=== PATIENT | female | born 1975 | race Caucasian/White ===

== ENCOUNTER 2016-07-13 21:43 | Emergency (ER) | payer BC ==
[2016-07-13] MEDS ORDERED: KETOROLAC 30 MG/ML 1 ML VIAL IVP STA (22:19)
[2016-07-13] MEDS ORDERED: SODIUM CHLORIDE 0.9% 1,000 ML IV STA (22:19)
[2016-07-13] MEDS ORDERED: ONDANSETRON 4 MG/2 ML VIAL IVP STA (22:19)
--- NOTE | 2016-07-13 22:24 | ED ---
Abdominal Pain HPI - General Chief Complaint: Abdominal Pain Stated Complaint: Abd Pain Time Seen by Provider: 07/13/16 22:00 Source: patient, RN notes reviewed Mode of arrival: ambulatory Limitations: no limitations - History of Present Illness Initial Comments: Patient is a 41-year-old female with chief complaint of diffuse lower abdominal pain for approximately 3 days. Patient reports that she's also had some symptoms of dysuria. She reports last menstrual period was approximately 2 weeks ago. She denies any chance of . Patient reports that she feels nauseated at this time but denies any vomiting. She denies any changes in bowel movements. She denies any fever or chills. Patient reports that the pain is severe. She states that she's had no history of kidney stones. She denies any hematuria as well. Patient denies any vaginal discharge. Patient reports that she's had a history of a but denies any other abdominal surgeries. - Related Data Previous Rx's Medication Instructions Recorded Ciprofloxacin HCl [Cipro] 500 mg PO Q12HR #10 tablet 07/14/16 Phenazopyridine [Pyridium] 100 mg PO TID #6 tablet 07/14/16 Allergies Allergy/AdvReac Type Severity Reaction Status Date / Time No Known Allergies Allergy Verified 07/13/16 21:53 Review of Systems ROS Statement: Those systems with pertinent positive or pertinent negative responses have been documented in the HPI. ROS Other: All systems not noted in ROS Statement are negative. 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 She is on appear to be in any acute distress. Limitations: no limitations General appearance: alert, in no apparent distress Head exam: Present: atraumatic, normocephalic, normal inspection Eye exam: Present: normal appearance, PERRL, EOMI. Absent: scleral icterus, conjunctival injection, periorbital swelling ENT exam: Present: normal exam, mucous membranes moist Neck exam: Present: normal inspection. Absent: tenderness, meningismus, lymphadenopathy Respiratory exam: Present: normal lung sounds bilaterally. Absent: respiratory distress, wheezes, rales, rhonchi, stridor Cardiovascular Exam: Present: regular rate, normal rhythm, normal heart sounds. Absent: systolic murmur, diastolic murmur, rubs, gallop, clicks GI/Abdominal exam: Present: soft, normal bowel sounds. Absent: distended, tenderness, guarding, rebound, rigid Extremities exam: Present: normal inspection, full ROM, normal capillary refill. Absent: tenderness, pedal edema, joint swelling, calf tenderness Back exam: Present: normal inspection Neurological exam: Present: alert, oriented X3, CN II-XII intact Psychiatric exam: Present: normal affect, normal mood Skin exam: Present: warm, dry, intact, normal color. Absent: rash Course Vital Signs 07/13/16 07/13/16 07/13/16 21:49 23:06 23:31 Temperature 97.3 F L 98.2 F 98.1 F Pulse Rate 96 98 78 Respiratory 22 20 20 Rate Blood Pressure 184/90 178/78 156/72 O2 Sat by Pulse 99 98 99 Oximetry 07/14/16 00:24 Temperature 97.6 F Pulse Rate 78 Respiratory 18 Rate Blood Pressure 146/72 O2 Sat by Pulse 98 Oximetry Medical Decision Making - Medical Decision Making Patients 41 year old female with 3 days of lower abdominal pain and dysuria. Patient urine is positive for UTI with positive nitrates, leukocyte esterase, and large WBC and RBC. Patient refused abdominal xray. Patient does have evidence of leukocytosis. We will give patient IV rocephin before discharge. Patient will be placed on cipro 500 BID for 10 days. Patient also given Rx of pyridium. Return parameters discussed. Patient understands treatment plan and will comply. - Lab Data Result diagrams: 07/13/16 22:50 07/13/16 22:50 Lab Results 07/13/16 07/13/16 07/13/16 Range/Units 22:40 22:50 22:50 WBC 14.4 H (3.8-10.6) k/uL RBC 5.35 (3.80-5.40) m/uL Hgb 14.5 (11.4-16.0) gm/dL Hct 44.9 (34.0-46.0) % MCV 83.9 (80.0-100.0) fL MCH 27.2 (25.0-35.0) pg MCHC 32.4 (31.0-37.0) g/dL RDW 13.4 (11.5-15.5) % Plt Count 280 (150-450) k/uL Neutrophils % 62 % Lymphocytes % 29 % Monocytes % 5 % Eosinophils % 2 % Basophils % 1 % Neutrophils # 8.8 H (1.3-7.7) k/uL Lymphocytes # 4.2 (1.0-4.8) k/uL Monocytes # 0.7 (0-1.0) k/uL Eosinophils # 0.3 (0-0.7) k/uL Basophils # 0.1 (0-0.2) k/uL Sodium 140 (137-145) mmol/L Potassium 4.7 (3.5-5.1) mmol/L Chloride 103 (98-107) mmol/L Carbon Dioxide 23 (22-30) mmol/L Anion Gap 14 mmol/L BUN 20 H (7-17) mg/dL Creatinine 0.67 (0.52-1.04) mg/dL Est GFR (MDRD) Af Amer >60 (>60 ml/min/1.73 sqM) Est GFR (MDRD) Non-Af >60 (>60 ml/min/1.73 sqM) Glucose 139 H (74-99) mg/dL Calcium 9.7 (8.4-10.2) mg/dL Total Bilirubin 0.6 (0.2-1.3) mg/dL AST 22 (14-36) U/L ALT 27 (9-52) U/L Alkaline Phosphatase 78 (38-126) U/L Total Protein 7.6 (6.3-8.2) g/dL Albumin 4.2 (3.5-5.0) g/dL Amylase 58 (30-110) U/L Lipase 155 (23-300) U/L Urine Color Yellow Urine Appearance Turbid H (Clear) Urine pH 6.0 (5.0-8.0) Ur Specific [place] 1.013 (1.001-1.035) Urine Protein 1+ H (Negative) Urine Glucose (UA) 4+ H (Negative) Urine Ketones Negative (Negative) Urine Blood Moderate H (Negative) Urine Nitrate Positive H (Negative) Urine Bilirubin Negative (Negative) Urine Urobilinogen <2.0 (<2.0) mg/dL Ur Leukocyte Esterase Large H (Negative) Urine RBC >182 H (0-5) /hpf Urine WBC >182 H (0-5) /hpf Urine WBC Clumps Many H (None) /hpf Ur Squamous Epith Cells 15 H (0-4) /hpf Urine Bacteria Moderate H (None) /hpf Disposition Clinical Impression: Urinary tract infection Disposition: HOME SELF-CARE Condition: Good Instructions: Urinary Tract Infection in Women (ED) Additional Instructions: Patient started to completely anabiotic prescription and to use Pyridium for the next 2 days for pain. Motrin and Tylenol as well for fever and pain. Return to the [facility] if any alarming signs or symptoms occur. Prescriptions: Ciprofloxacin HCl [Cipro] 500 mg PO Q12HR #10 tablet Phenazopyridine [Pyridium] 100 mg PO TID #6 tablet Referrals: Eulalia Wadsworth MD [Primary Care Provider] - 1-2 days Time of Disposition: 00:05
[2016-07-13 22:49] LABS: Appearance,Urine Turbid (Clear); Bacteria,Urine Moderate /hpf; Bilirubin,Urine Negative (Negative); Glucose,Urine (UA) 4+ (Negative); Ketones,Urine Negative (Negative); Leukocyte Esterase,Urine Large (Negative); Nitrite,Urine Positive (Negative); Particle Count 38798; Protein,Urine 1+ (Negative); RBC,Urine >182 /hpf (0-5); Specific Gravity,Urine 1.013 (1.001-1.035); Squamous Epithelial Cell,Urine 15 /hpf (0-4); UA Billing (MACRO vs. MICRO) MICRO; Urobilinogen,Urine <2.0 mg/dL (<2.0); WBC,Urine >182 /hpf (0-5)
[2016-07-13] MEDS ORDERED: HYDROmorphone 1 MG/ML 1 ML SYRINGE IM STA (23:07)
[2016-07-13 23:09] LABS: Basophils # (A) 0.1 k/uL (0-0.2); Basophils % (A) 1 %; CHCM 32.3; Eosinophils # (A) 0.3 k/uL (0-0.7); Eosinophils % (A) 2 %; HCT 44.9 % (34.0-46.0); HGB 14.5 gm/dL (11.4-16.0); Luc # (Auto) 0.25; Luc % (Auto) 2; Lymphocytes # (A) 4.2 k/uL (1.0-4.8); Lymphocytes % (A) 29 %; MCH 27.2 pg (25.0-35.0); MCHC 32.4 g/dL (31.0-37.0); MCV 83.9 fL (80.0-100.0); Mean Platelet Volume 7.2; Monocytes # (A) 0.7 k/uL (0-1.0); Monocytes % (A) 5 %; Neutrophils # (A) 8.8 k/uL (1.3-7.7); Neutrophils % (A) 62 %; RBC 5.35 m/uL (3.80-5.40); RDW 13.4 % (11.5-15.5); WBC 14.4 k/uL (3.8-10.6); WBC (Perox) 13.85
[2016-07-13 23:15] LABS: Amylase 58 U/L (30-110); Anion Gap 14 mmol/L; Blood Urea Nitrogen 20 mg/dL (7-17); Calcium 9.7 mg/dL (8.4-10.2); Carbon Dioxide 23 mmol/L (22-30); Chloride 103 mmol/L (98-107); Glucose 139 mg/dL (74-99); Non-African American GFR(MDRD) >60 (>60 ml/min/1.73 sqM); Potassium 4.7 mmol/L (3.5-5.1); Sodium 140 mmol/L (137-145); Total Bilirubin 0.6 mg/dL (0.2-1.3); Total Protein 7.6 g/dL (6.3-8.2)
[2016-07-13 23:16] LABS: ALT 27 U/L (9-52); AST 22 U/L (14-36); Alkaline Phosphatase 78 U/L (38-126)
[2016-07-13 23:33] VITALS: PULSE 78
[2016-07-14] MEDS ORDERED: CIPROFLOXACIN HCL 500 MG TAB PO STA (00:08)
[2016-07-14 00:25] VITALS: BP 146/72; RESP 18; TEMP 97.6
== END 2016-07-14 00:26 | disposition home or self-care (01) ==
LOC: EC 21:43
DX: N39.0 Urinary tract infection, site not specified (principal); F17.200 Nicotine dependence, unspecified, uncomplicated
CPT/HCPCS: 36415; 80053; 82150; 83690; 85025; 81001; 96365; 96372; 96375 ×2; 99284; J2405; J0696; J1885; J1170

== ENCOUNTER 2016-07-16 02:23 | Emergency (ER) | payer BC ==
[2016-07-16] MEDS ORDERED: HYDROmorphone 1 MG/ML 1 ML SYRINGE IVP STA ×2 (02:34→04:06)
[2016-07-16] MEDS ORDERED: SODIUM CHLORIDE 0.9% 1,000 ML IV STA (02:34)
[2016-07-16] MEDS ORDERED: ONDANSETRON 4 MG/2 ML VIAL IVP STA (02:34)
[2016-07-16] MEDS: KETOROLAC 30 MG/ML 1 ML VIAL IVP STA ×2 (03:01→04:17)
[2016-07-16 03:03] LABS: Appearance,Urine Clear (Clear); Basophils # (A) 0.1 k/uL (0-0.2); Basophils % (A) 1 %; Bilirubin,Urine Negative (Negative); CH 27.2; CHCM 32.4; Eosinophils # (A) 0.3 k/uL (0-0.7); Eosinophils % (A) 2 %; Glucose,Urine (UA) 3+ (Negative); HCT 48.2 % (34.0-46.0); HDW 2.55; HGB 14.7 gm/dL (11.4-16.0); Ketones,Urine Negative (Negative); Leukocyte Esterase,Urine Negative (Negative); Luc # (Auto) 0.15; Luc % (Auto) 1; Lymphocytes # (A) 3.3 k/uL (1.0-4.8); Lymphocytes % (A) 28 %; MCH 25.8 pg (25.0-35.0); MCHC 30.6 g/dL (31.0-37.0); MCV 84.4 fL (80.0-100.0); Mean Platelet Volume 7.6; Monocytes # (A) 0.6 k/uL (0-1.0); Monocytes % (A) 5 %; Neutrophils # (A) 7.3 k/uL (1.3-7.7); Neutrophils % (A) 62 %; Nitrite,Urine Negative (Negative); PH, Urine 6.5 (5.0-8.0); Protein,Urine Negative (Negative); RDW 13.3 % (11.5-15.5); Specific Gravity,Urine 1.006 (1.001-1.035); UA Billing (MACRO vs. MICRO) CHEM; Urobilinogen,Urine <2.0 mg/dL (<2.0); WBC 11.7 k/uL (3.8-10.6); WBC (Perox) 11.68
--- NOTE | 2016-07-16 03:11 | XR ---
EXAMINATION TYPE: XR KUB DATE OF EXAM: 07/16/2016 2:45 AM CLINICAL HISTORY: Flank pain history of recent kidney stone, . TECHNIQUE: 2 upright frontal radiographs of abdomen were obtained. COMPARISON: None. FINDINGS: There is evidence of [id number] gaseous distention of small bowel loops is noted with air-fluid levels in the abdomen with suggestion of mild ileus. No significant bowel obstruction is noted.. There is no visceromegaly, pneumoperitoneum, or abnormal calcification appreciated. The lung bases are clear and the osseous structures are intact. IMPRESSION: 1. Suggestion of mild ileus or enteritis changes. 2. No significant bowel obstruction.
[2016-07-16 03:13] LABS: ALT 29 U/L (9-52); AST 13 U/L (14-36); Alkaline Phosphatase 78 U/L (38-126); Amylase 52 U/L (30-110); Anion Gap 14 mmol/L; Blood Urea Nitrogen 15 mg/dL (7-17); Calcium 9.7 mg/dL (8.4-10.2); Carbon Dioxide 22 mmol/L (22-30); Chloride 104 mmol/L (98-107); Glucose 155 mg/dL (74-99); Non-African American GFR(MDRD) >60 (>60 ml/min/1.73 sqM); Potassium 4.3 mmol/L (3.5-5.1); Sodium 140 mmol/L (137-145); Total Bilirubin 0.5 mg/dL (0.2-1.3); Total Protein 7.6 g/dL (6.3-8.2)
--- NOTE | 2016-07-16 03:30 | ED ---
Abdominal Pain HPI - General Chief Complaint: Abdominal Pain Stated Complaint: abd pain Time Seen by Provider: 07/16/16 02:33 Source: patient, RN notes reviewed, old records reviewed Mode of arrival: ambulatory Limitations: no limitations - History of Present Illness Initial Comments: Patient is a 41-year-old female with a chief complaint of lower back pain 1 day. Patient reports that she was recently diagnosed with a urinary tract infection yesterday area patient yesterday was given a gram of IV antibiotics Rocephin and discharged on Cipro. Patient reports that she's been taking the medications and Pyridium as prescribed. She states that the pain is now not in her abdomen but is radiated towards her back. She denies any abdominal tenderness at this time. She reports that she's had a few episodes of vomiting and states that she feels chilled but denies any specific fever. She reports that she's had a history of kidney stones in the past. Patient reports that she is unable to get comfortable in any position that she is standing or sitting in. Patient denies any recent fever, shortness of breath, chest pain, abdominal pain, numbness or tingling, dysuria or hematuria, constipation or diarrhea, headaches or visual changes, or any other current symptoms - Related Data Previous Rx's Medication Instructions Recorded Ciprofloxacin HCl [Cipro] 500 mg PO Q12HR #10 tablet 07/14/16 Phenazopyridine [Pyridium] 100 mg PO TID #6 tablet 07/14/16 Dicyclomine [Bentyl] 10 mg PO TID #15 capsule 07/16/16 Ketorolac [Toradol] 10 mg PO Q6HR #10 tab 07/16/16 Allergies Allergy/AdvReac Type Severity Reaction Status Date / Time No Known Allergies Allergy Verified 07/16/16 02:29 Review of Systems ROS Statement: Those systems with pertinent positive or pertinent negative responses have been documented in the HPI. ROS Other: All systems not noted in ROS Statement are negative. 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 She is currently pacing the room in pain. Patient is clutching her back. Limitations: no limitations General appearance: alert Head exam: Present: atraumatic, normocephalic, normal inspection Eye exam: Present: normal appearance, PERRL, EOMI. Absent: scleral icterus, conjunctival injection, periorbital swelling ENT exam: Present: normal exam, mucous membranes moist Neck exam: Present: normal inspection. Absent: tenderness, meningismus, lymphadenopathy Respiratory exam: Present: normal lung sounds bilaterally. Absent: respiratory distress, wheezes, rales, rhonchi, stridor Cardiovascular Exam: Present: regular rate, normal rhythm, normal heart sounds. Absent: systolic murmur, diastolic murmur, rubs, gallop, clicks GI/Abdominal exam: Present: soft, normal bowel sounds. Absent: distended, tenderness, guarding, rebound, rigid Extremities exam: Present: normal inspection, full ROM, normal capillary refill. Absent: tenderness, pedal edema, joint swelling, calf tenderness Back exam: Present: normal inspection, full ROM, CVA tenderness (R), CVA tenderness (L), other (lower back tenderness) Neurological exam: Present: alert, oriented X3, CN II-XII intact Psychiatric exam: Present: normal affect, normal mood Skin exam: Present: warm, dry, intact, normal color. Absent: rash Course Vital Signs 07/16/16 02:25 Temperature 97 F L Pulse Rate 93 Respiratory 18 Rate Blood Pressure 212/92 O2 Sat by Pulse 99 Oximetry Medical Decision Making - Medical Decision Making Patient is a 41-year-old female recently diagnosed with urinary tract infection yesterday. Yesterday patient did refuse any imaging studies. Patient was given a gram of Rocephin yesterday and has taken her Cipro ofloxacin today. Patient reports that the pain is not in her abdomen at this time and is only in her lower back. She reports it's on bilateral sides. Patient was given a KUB x -ray which shows mild enteritis and ileus changes. CT abdomen and pelvis without contrast was obtained to rule out nephrolithiasis. Patient's lab work was reviewed and compared to yesterday's. Patient's urine is essentially unremarkable besides 3+ glucose at this time. This is a significant difference from yesterday and many rbc's, wbc's, leukocyte esterase. Patient also has negative leukocytosis. Yesterday was 14.1 and today it is 11.6. Patient was ambulating around the room consistent with a kidney stone. Patient was tearful upon initial examination. Patient pain did subside with IV Toradol and 0.[address] abdomen and pelvis shows the patient is constipated. No evidence of hydronephrosis or kidney stones. Patient is reporting that she's had 4 bowel movements earlier today. Patient states that there is no way that constipation is due to the cause of this pain. I discussed the possibility that she has passed a stone and is unable to be seen this time. Patient reports that earlier today the pain felt like contractions in her lower back that would be relieved with heat somewhat. Patient will be discharged at this time with a repeat dose of pain medication while in the [facility]. She will also be given a a magnesium citrate bottle, Tylenol 3 starter pack and Zofran starter pack. Patient is advised to follow up with primary care provider tomorrow. Return parameters were discussed. Patient will be given a prescription for Bentyl and Toradol. - Lab Data Result diagrams: 07/16/16 02:40 07/16/16 02:40 Lab Results 07/16/16 07/16/16 07/16/16 Range/Units 02:40 02:40 02:40 WBC 11.7 H (3.8-10.6) k/uL RBC 5.70 H (3.80-5.40) m/uL Hgb 14.7 (11.4-16.0) gm/dL Hct 48.2 H (34.0-46.0) % MCV 84.4 (80.0-100.0) fL MCH 25.8 (25.0-35.0) pg MCHC 30.6 L (31.0-37.0) g/dL RDW 13.3 (11.5-15.5) % Plt Count 247 (150-450) k/uL Neutrophils % 62 % Lymphocytes % 28 % Monocytes % 5 % Eosinophils % 2 % Basophils % 1 % Neutrophils # 7.3 (1.3-7.7) k/uL Lymphocytes # 3.3 (1.0-4.8) k/uL Monocytes # 0.6 (0-1.0) k/uL Eosinophils # 0.3 (0-0.7) k/uL Basophils # 0.1 (0-0.2) k/uL Sodium 140 (137-145) mmol/L Potassium 4.3 (3.5-5.1) mmol/L Chloride 104 (98-107) mmol/L Carbon Dioxide 22 (22-30) mmol/L Anion Gap 14 mmol/L BUN 15 (7-17) mg/dL Creatinine 0.70 (0.52-1.04) mg/dL Est GFR (MDRD) Af Amer >60 (>60 ml/min/1.73 sqM) Est GFR (MDRD) Non-Af >60 (>60 ml/min/1.73 sqM) Glucose 155 H (74-99) mg/dL Plasma Lactic Acid Jamie 1.2 (0.7-2.0) mmol/L Calcium 9.7 (8.4-10.2) mg/dL Total Bilirubin 0.5 (0.2-1.3) mg/dL AST 13 L (14-36) U/L ALT 29 (9-52) U/L Alkaline Phosphatase 78 (38-126) U/L Total Protein 7.6 (6.3-8.2) g/dL Albumin 4.3 (3.5-5.0) g/dL Amylase 52 (30-110) U/L Lipase 120 (23-300) U/L Urine Color Urine Appearance (Clear) Urine pH (5.0-8.0) Ur Specific [place] (1.001-1.035) Urine Protein (Negative) Urine Glucose (UA) (Negative) Urine Ketones (Negative) Urine Blood (Negative) Urine Nitrate (Negative) Urine Bilirubin (Negative) Urine Urobilinogen (<2.0) mg/dL Ur Leukocyte Esterase (Negative) 07/16/16 Range/Units 02:40 WBC (3.8-10.6) k/uL RBC (3.80-5.40) m/uL Hgb (11.4-16.0) gm/dL Hct (34.0-46.0) % MCV (80.0-100.0) fL MCH (25.0-35.0) pg MCHC (31.0-37.0) g/dL RDW (11.5-15.5) % Plt Count (150-450) k/uL Neutrophils % % Lymphocytes % % Monocytes % % Eosinophils % % Basophils % % Neutrophils # (1.3-7.7) k/uL Lymphocytes # (1.0-4.8) k/uL Monocytes # (0-1.0) k/uL Eosinophils # (0-0.7) k/uL Basophils # (0-0.2) k/uL Sodium (137-145) mmol/L Potassium (3.5-5.1) mmol/L Chloride (98-107) mmol/L Carbon Dioxide (22-30) mmol/L Anion Gap mmol/L BUN (7-17) mg/dL Creatinine (0.52-1.04) mg/dL Est GFR (MDRD) Af Amer (>60 ml/min/1.73 sqM) Est GFR (MDRD) Non-Af (>60 ml/min/1.73 sqM) Glucose (74-99) mg/dL Plasma Lactic Acid Jamie (0.7-2.0) mmol/L Calcium (8.4-10.2) mg/dL Total Bilirubin (0.2-1.3) mg/dL AST (14-36) U/L ALT (9-52) U/L Alkaline Phosphatase (38-126) U/L Total Protein (6.3-8.2) g/dL Albumin (3.5-5.0) g/dL Amylase (30-110) U/L Lipase (23-300) U/L Urine Color Dark Yellow Urine Appearance Clear (Clear) Urine pH 6.5 (5.0-8.0) Ur Specific [place] 1.006 (1.001-1.035) Urine Protein Negative (Negative) Urine Glucose (UA) 3+ H (Negative) Urine Ketones Negative (Negative) Urine Blood Negative (Negative) Urine Nitrate Negative (Negative) Urine Bilirubin Negative (Negative) Urine Urobilinogen <2.0 (<2.0) mg/dL Ur Leukocyte Esterase Negative (Negative) - Radiology Data Radiology results: report reviewed Computed tomography scan showed the patient is constipated. No kidney opaque stones or hydronephrosis is noted bilaterally. No significant acute process noted in the abdomen and pelvis. This was repaired by Dr. Shanta avila. Disposition Clinical Impression: Recent urinary tract infection, Constipation, Lower back pain Disposition: HOME SELF-CARE Condition: Good Instructions: Constipation (ED) Additional Instructions: Patient advised to follow up with primary care provider tomorrow. Completely antibiotic prescription. Patient advised to take pain medication and nausea medication as needed. Patient is to also complete magnesium citrate tomorrow while at home. Return to the [facility] if any alarming signs or symptoms occur. Prescriptions: Dicyclomine [Bentyl] 10 mg PO TID #15 capsule Ketorolac [Toradol] 10 mg PO Q6HR #10 tab Referrals: Eulalia Wadsworth MD [Primary Care Provider] - 1-2 days Time of Disposition: 04:12
--- NOTE | 2016-07-16 03:50 | CT ---
EXAMINATION TYPE: CT abdomen pelvis wo con DATE OF EXAM: 07/16/2016 3:27 AM COMPARISON: NONE HISTORY: bilateral flank pain , recent kidney stone history of . CT DLP: 371.20 mGycm Automated exposure control for dose reduction was used. TECHNIQUE: Helical acquisition of images was performed from the lung bases through the pelvis. FINDINGS: LUNG BASES: Mild dependent atelectasis is suggested in both lung bases. LIVER/GB: Tiny granulomatous calcification is noted in the liver. Mild hepatomegaly is suggested. Gal lbladder appears unremarkable. PANCREAS: No significant abnormality is seen. SPLEEN: No significant abnormality is seen. ADRENALS: No significant abnormality is seen. KIDNEYS: No significant abnormality is seen. RETROPERITONEAL ADENOPATHY: None visualized REPRODUCTIVE ORGANS: No significant abnormality is seen URINARY BLADDER: No significant abnormality is seen. PELVIC ADENOPATHY: None visualized. URINARY BLADDER: Appears unremarkable. OSSEOUS STRUCTURES: No significant abnormality is seen. BOWEL: Stomach appears unremarkable. Small bowel loops showed no significant bowel obstruction. Moderate to large amount of fecal material is noted in the colon and patient is constipated. Visualized appendix appears unremarkable. OTHER: Mild/moderate diffuse atherosclerotic calcification is noted in the abdominal aorta and iliac arteries. Small fat-containing umbilical hernia is noted. IMPRESSION: 1. PATIENT IS CONSTIPATED. 2. NO KIDNEY [place]QUE STONES OR HYDRONEPHROSIS IS NOTED BILATERALLY. 3. NO SIGNIFICANT ACUTE PROCESSES NOTED IN THE ABDOMEN AND PELVIS.
[2016-07-16] MEDS ORDERED: KETOROLAC 30 MG/ML 1 ML VIAL IVP STA (04:06)
[2016-07-16] MEDS ORDERED: MAGNESIUM CITRATE 296 ML BOTTLE PO ONE (04:06)
[2016-07-16] MEDS ORDERED: ACET/COD 300 MG/30 MG STARTER PACK 6 TAB BTL PO STA (04:07)
[2016-07-16] MEDS ORDERED: ONDANSETRON 4 MG ODT STARTER PACK 2 TAB BTL PO STA (04:08)
[2016-07-16 04:30] VITALS: PULSE 82
[2016-07-16 04:49] VITALS: BP 164/78; RESP 18; TEMP 97.6
== END 2016-07-16 04:47 | disposition home or self-care (01) ==
LOC: EC 02:23
DX: K59.00 Constipation, unspecified (principal); M54.5 Low back pain; N39.0 Urinary tract infection, site not specified; Z87.442 Personal history of urinary calculi; Z79.899 Other long term (current) drug therapy; F17.200 Nicotine dependence, unspecified, uncomplicated; Z86.14 Personal history of Methicillin resistant Staphylococcus aureus infection
CPT/HCPCS: 99284; 96374; 96375 ×2; 96376; 96361; 36415; 80053; 82150; 83605; 83690; 85025; 81003; 87040; 74000; 74176; J2405; J1885; J1170; S0119

== ENCOUNTER 2018-12-16 13:40 | Emergency (ER) | payer BC ==
[2018-12-16 13:47] VITALS: TEMP 98.6
[2018-12-16] MEDS ORDERED: SODIUM CHLORIDE 0.9% 1,000 ML IV STA (14:08)
--- NOTE | 2018-12-16 14:14 | ED ---
Altered Mental Status HPI - General Chief Complaint: Altered Mental Status Stated Complaint: Dizzy, confused, nausea Time Seen by Provider: 12/16/18 14:07 Source: patient, RN notes reviewed, old records reviewed Mode of arrival: wheelchair Limitations: no limitations - History of Present Illness Initial Comments: This is a 43-year-old female the ER for evaluation. Patient is very emotional during evaluation. 3-4 days of altered mental status. No pain or shortness of breath no trauma. Has history of high blood pressure diabetes does not take medication for blood pressures taken and recent times as her blood pressure was improved presents today blood pressure severely elevated and very emotional secondary to confusion, patient was sent in [facility] but she wasn't acting appropriately MD Complaint: confusion -: days(s) (4) Severity: mild Consistency of Symptoms: getting worse Associated Symptoms: denies other symptoms Treatments Prior to Arrival: glucose - Related Data Home Medications Medication Instructions Recorded Confirmed ALPRAZolam [Xanax] 0.25 mg PO DAILY PRN 12/16/18 12/16/18 Escitalopram [Lexapro] 20 mg PO DAILY 12/16/18 12/16/18 Insulin Glargine,Hum.rec.anlog 20 unit SQ HS 12/16/18 12/16/18 [Lantus Solostar] glipiZIDE [Glucotrol XL] 10 mg PO DAILY 12/16/18 12/16/18 Allergies Allergy/AdvReac Type Severity Reaction Status Date / Time No Known Allergies Allergy Verified 12/16/18 14:41 Review of Systems ROS Statement: Those systems with pertinent positive or pertinent negative responses have been documented in the HPI. ROS Other: All systems not noted in ROS Statement are negative. 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 Absent: scleral icterus, conjunctival injection, periorbital swelling ENT exam: Present: normal exam, mucous membranes moist Neck exam: Present: normal inspection. Absent: tenderness, meningismus, lymphadenopathy Respiratory exam: Present: normal lung sounds bilaterally. Absent: respiratory distress, wheezes, rales, rhonchi, stridor Cardiovascular Exam: Present: regular rate, normal rhythm, normal heart sounds. Absent: systolic murmur, diastolic murmur, rubs, gallop, clicks GI/Abdominal exam: Present: soft, normal bowel sounds. Absent: distended, tenderness, guarding, rebound, rigid Extremities exam: Present: normal inspection, full ROM, normal capillary refill. Absent: tenderness, pedal edema, joint swelling, calf tenderness Back exam: Present: normal inspection Neurological exam: Present: alert, oriented X3, CN II-XII intact Psychiatric exam: Present: normal affect, normal mood Skin exam: Present: warm, dry, intact, normal color. Absent: rash Course Vital Signs 12/16/18 12/16/18 13:43 14:33 Temperature 98.6 F Pulse Rate 101 H 91 Respiratory 20 18 Rate Blood Pressure 229/111 187/88 O2 Sat by Pulse 97 98 Oximetry - Reevaluation(s) Reevaluation #1: 12/16/18 16:15 Medical record is reviewed Reevaluation #2: 12/16/18 16:15 Patient symptoms are resolved Reevaluation #3: 12/16/18 16:16 Asians blood pressure is improved, patient no longer crying Medical Decision Making - Medical Decision Making 43 female the ER for evaluation presented today for evaluation of confusion, confusion currently resolved. Blood pressure significant elevated, will treat patient with outpatient blood pressure control. Patient can be discharged home - Lab Data Result diagrams: 12/16/18 14:17 12/16/18 14:17 Lab Results 12/16/18 12/16/18 12/16/18 Range/Units 14:17 14:17 14:17 WBC 12.6 H (3.8-10.6) k/uL RBC 5.09 (3.80-5.40) m/uL Hgb 13.4 (11.4-16.0) gm/dL Hct 41.5 (34.0-46.0) % MCV 81.7 (80.0-100.0) fL MCH 26.4 (25.0-35.0) pg MCHC 32.3 (31.0-37.0) g/dL RDW 13.8 (11.5-15.5) % Plt Count 356 (150-450) k/uL Neutrophils % 59 % Lymphocytes % 31 % Monocytes % 5 % Eosinophils % 3 % Basophils % 1 % Neutrophils # 7.4 (1.3-7.7) k/uL Lymphocytes # 3.8 (1.0-4.8) k/uL Monocytes # 0.6 (0-1.0) k/uL Eosinophils # 0.4 (0-0.7) k/uL Basophils # 0.1 (0-0.2) k/uL PT (9.0-12.0) sec INR (<1.2) APTT (22.0-30.0) sec Sodium 137 (137-145) mmol/L Potassium 4.3 (3.5-5.1) mmol/L Chloride 105 (98-107) mmol/L Carbon Dioxide 19 L (22-30) mmol/L Anion Gap 13 mmol/L BUN 14 (7-17) mg/dL Creatinine 0.58 (0.52-1.04) mg/dL Est GFR (CKD-EPI)AfAm >90 (>60 ml/min/1.73 sqM) Est GFR (CKD-EPI)NonAf >90 (>60 ml/min/1.73 sqM) Glucose 159 H (74-99) mg/dL Calcium 9.6 (8.4-10.2) mg/dL Phosphorus 3.8 (2.5-4.5) mg/dL Magnesium 1.6 (1.6-2.3) mg/dL Total Bilirubin 0.5 (0.2-1.3) mg/dL AST 19 (14-36) U/L ALT 16 (9-52) U/L Alkaline Phosphatase 97 (38-126) U/L Creatine Kinase 138 H (30-135) U/L Troponin I (0.000-0.034) ng/mL NT-Pro-B Natriuret Pep 133 pg/mL Total Protein 7.5 (6.3-8.2) g/dL Albumin 4.3 (3.5-5.0) g/dL Urine Color Urine Appearance (Clear) Urine pH (5.0-8.0) Ur Specific Crane (1.001-1.035) Urine Protein (Negative) Urine Glucose (UA) (Negative) Urine Ketones (Negative) Urine Blood (Negative) Urine Nitrite (Negative) Urine Bilirubin (Negative) Urine Urobilinogen (<2.0) mg/dL Ur Leukocyte Esterase (Negative) Urine Opiates Screen (NotDetected) Ur Oxycodone Screen (NotDetected) Urine Methadone Screen (NotDetected) Ur Propoxyphene Screen (NotDetected) Ur Barbiturates Screen (NotDetected) U Tricyclic Antidepress (NotDetected) Ur Phencyclidine Scrn (NotDetected) Ur Amphetamines Screen (NotDetected) U Methamphetamines Scrn (NotDetected) U Benzodiazepines Scrn (NotDetected) Urine Cocaine Screen (NotDetected) U Marijuana (THC) Screen (NotDetected) 12/16/18 12/16/18 12/16/18 Range/Units 14:17 14:17 14:35 WBC (3.8-10.6) k/uL RBC (3.80-5.40) m/uL Hgb (11.4-16.0) gm/dL Hct (34.0-46.0) % MCV (80.0-100.0) fL MCH (25.0-35.0) pg MCHC (31.0-37.0) g/dL RDW (11.5-15.5) % Plt Count (150-450) k/uL Neutrophils % % Lymphocytes % % Monocytes % % Eosinophils % % Basophils % % Neutrophils # (1.3-7.7) k/uL Lymphocytes # (1.0-4.8) k/uL Monocytes # (0-1.0) k/uL Eosinophils # (0-0.7) k/uL Basophils # (0-0.2) k/uL PT 9.4 (9.0-12.0) sec INR 0.9 (<1.2) APTT 24.0 (22.0-30.0) sec Sodium (137-145) mmol/L Potassium (3.5-5.1) mmol/L Chloride (98-107) mmol/L Carbon Dioxide (22-30) mmol/L Anion Gap mmol/L BUN (7-17) mg/dL Creatinine (0.52-1.04) mg/dL Est GFR (CKD-EPI)AfAm (>60 ml/min/1.73 sqM) Est GFR (CKD-EPI)NonAf (>60 ml/min/1.73 sqM) Glucose (74-99) mg/dL Calcium (8.4-10.2) mg/dL Phosphorus (2.5-4.5) mg/dL Magnesium (1.6-2.3) mg/dL Total Bilirubin (0.2-1.3) mg/dL AST (14-36) U/L ALT (9-52) U/L Alkaline Phosphatase (38-126) U/L Creatine Kinase (30-135) U/L Troponin I <0.012 (0.000-0.034) ng/mL NT-Pro-B Natriuret Pep pg/mL Total Protein (6.3-8.2) g/dL Albumin (3.5-5.0) g/dL Urine Color Light Yellow Urine Appearance Clear (Clear) Urine pH 6.0 (5.0-8.0) Ur Specific Crane 1.004 (1.001-1.035) Urine Protein Negative (Negative) Urine Glucose (UA) Negative (Negative) Urine Ketones Negative (Negative) Urine Blood Negative (Negative) Urine Nitrite Negative (Negative) Urine Bilirubin Negative (Negative) Urine Urobilinogen <2.0 (<2.0) mg/dL Ur Leukocyte Esterase Negative (Negative) Urine Opiates Screen (NotDetected) Ur Oxycodone Screen (NotDetected) Urine Methadone Screen (NotDetected) Ur Propoxyphene Screen (NotDetected) Ur Barbiturates Screen (NotDetected) U Tricyclic Antidepress (NotDetected) Ur Phencyclidine Scrn (NotDetected) Ur Amphetamines Screen (NotDetected) U Methamphetamines Scrn (NotDetected) U Benzodiazepines Scrn (NotDetected) Urine Cocaine Screen (NotDetected) U Marijuana (THC) Screen (NotDetected) 12/16/18 Range/Units 14:35 WBC (3.8-10.6) k/uL RBC (3.80-5.40) m/uL Hgb (11.4-16.0) gm/dL Hct (34.0-46.0) % MCV (80.0-100.0) fL MCH (25.0-35.0) pg MCHC (31.0-37.0) g/dL RDW (11.5-15.5) % Plt Count (150-450) k/uL Neutrophils % % Lymphocytes % % Monocytes % % Eosinophils % % Basophils % % Neutrophils # (1.3-7.7) k/uL Lymphocytes # (1.0-4.8) k/uL Monocytes # (0-1.0) k/uL Eosinophils # (0-0.7) k/uL Basophils # (0-0.2) k/uL PT (9.0-12.0) sec INR (<1.2) APTT (22.0-30.0) sec Sodium (137-145) mmol/L Potassium (3.5-5.1) mmol/L Chloride (98-107) mmol/L Carbon Dioxide (22-30) mmol/L Anion Gap mmol/L BUN (7-17) mg/dL Creatinine (0.52-1.04) mg/dL Est GFR (CKD-EPI)AfAm (>60 ml/min/1.73 sqM) Est GFR (CKD-EPI)NonAf (>60 ml/min/1.73 sqM) Glucose (74-99) mg/dL Calcium (8.4-10.2) mg/dL Phosphorus (2.5-4.5) mg/dL Magnesium (1.6-2.3) mg/dL Total Bilirubin (0.2-1.3) mg/dL AST (14-36) U/L ALT (9-52) U/L Alkaline Phosphatase (38-126) U/L Creatine Kinase (30-135) U/L Troponin I (0.000-0.034) ng/mL NT-Pro-B Natriuret Pep pg/mL Total Protein (6.3-8.2) g/dL Albumin (3.5-5.0) g/dL Urine Color Urine Appearance (Clear) Urine pH (5.0-8.0) Ur Specific Crane (1.001-1.035) Urine Protein (Negative) Urine Glucose (UA) (Negative) Urine Ketones (Negative) Urine Blood (Negative) Urine Nitrite (Negative) Urine Bilirubin (Negative) Urine Urobilinogen (<2.0) mg/dL Ur Leukocyte Esterase (Negative) Urine Opiates Screen Not Detected (NotDetected) Ur Oxycodone Screen Not Detected (NotDetected) Urine Methadone Screen Not Detected (NotDetected) Ur Propoxyphene Screen Not Detected (NotDetected) Ur Barbiturates Screen Not Detected (NotDetected) U Tricyclic Antidepress Not Detected (NotDetected) Ur Phencyclidine Scrn Not Detected (NotDetected) Ur Amphetamines Screen Not Detected (NotDetected) U Methamphetamines Scrn Not Detected (NotDetected) U Benzodiazepines Scrn Not Detected (NotDetected) Urine Cocaine Screen Not Detected (NotDetected) U Marijuana (THC) Screen Detected H (NotDetected) - EKG Data -: EKG Interpreted by Me (EKG shows sinus rhythm rate of 94, AR 166, QRS 70, QTc 480) - Radiology Data Radiology results: report reviewed (CT brain CT a head and neck negative for acute disease), image reviewed Disposition Clinical Impression: Altered mental status, Hypertensive urgency, TIA (transient ischemic attack) Disposition: HOME SELF-CARE Condition: Good Instructions (If sedation given, give patient instructions): Altered Mental Status (ED) Is patient prescribed a controlled substance at d/c from ED?: No Referrals: Eulalia Wadsworth MD [Primary Care Provider] - 1-2 days
[2018-12-16 14:28] LABS: Basophils # (A) 0.1 k/uL (0-0.2); Basophils % (A) 1 %; Eosinophils # (A) 0.4 k/uL (0-0.7); Eosinophils % (A) 3 %; HCT 41.5 % (34.0-46.0); HGB 13.4 gm/dL (11.4-16.0); Lymphocytes # (A) 3.8 k/uL (1.0-4.8); Lymphocytes % (A) 31 %; MCH 26.4 pg (25.0-35.0); MCHC 32.3 g/dL (31.0-37.0); MCV 81.7 fL (80.0-100.0); Mean Platelet Volume 7.2; Monocytes # (A) 0.6 k/uL (0-1.0); Monocytes % (A) 5 %; Neutrophils # (A) 7.4 k/uL (1.3-7.7); Neutrophils % (A) 59 %; Platelet Count 356 k/uL (150-450); RBC 5.09 m/uL (3.80-5.40); RDW 13.8 % (11.5-15.5); WBC 12.6 k/uL (3.8-10.6)
[2018-12-16 14:36] VITALS: RESP 18
[2018-12-16 14:39] LABS: INR 0.9 (<1.2); Prothrombin Time 9.4 sec (9.0-12.0)
[2018-12-16 14:47] LABS: ALT 16 U/L (9-52); AST 19 U/L (14-36); African American GFR (CKD) >90 (>60 ml/min/1.73 sqM); Albumin 4.3 g/dL (3.5-5.0); Alkaline Phosphatase 97 U/L (38-126); Anion Gap 13 mmol/L; Blood Urea Nitrogen 14 mg/dL (7-17); Calcium 9.6 mg/dL (8.4-10.2); Carbon Dioxide 19 mmol/L (22-30); Chloride 105 mmol/L (98-107); Creatine Kinase 138 U/L (30-135); Glucose 159 mg/dL (74-99); Magnesium 1.6 mg/dL (1.6-2.3); Phosphorus 3.8 mg/dL (2.5-4.5); Potassium 4.3 mmol/L (3.5-5.1); Sodium 137 mmol/L (137-145); Total Bilirubin 0.5 mg/dL (0.2-1.3); Total Protein 7.5 g/dL (6.3-8.2)
[2018-12-16 14:51] LABS: Appearance,Urine Clear (Clear); Bilirubin,Urine Negative (Negative); Blood,Urine Negative (Negative); Color,Urine Light Yellow; Glucose,Urine (UA) Negative (Negative); Ketones,Urine Negative (Negative); Leukocyte Esterase,Urine Negative (Negative); Nitrite,Urine Negative (Negative); Protein,Urine Negative (Negative); Specific Gravity,Urine 1.004 (1.001-1.035); Urobilinogen,Urine <2.0 mg/dL (<2.0)
[2018-12-16 15:06] LABS: Amphetamine Screen,Urine Not Detected (NotDetected); Barbiturate Screen,Urine Not Detected (NotDetected); Benzodiazepines Screen,Urine Not Detected (NotDetected); Cocaine Screen,Urine Not Detected (NotDetected); Methadone Screen, Urine Not Detected (NotDetected); Opiate Screen,Urine Not Detected (NotDetected); Oxycodone Screen, Urine Not Detected (NotDetected); Phencyclidine Screen,Urine Not Detected (NotDetected); Tricyclic Antidepressant,Urine Not Detected (NotDetected); Urn Cannabinoid Scrn Detected (NotDetected)
--- NOTE | 2018-12-16 15:36 | CT ---
EXAMINATION TYPE: CT brain wo con DATE OF EXAM: 12/16/2018 COMPARISON: None HISTORY: Dizziness, blurred vision and confusion x 6 days getting worse. TECHNIQUE: Examination was done in axial plane without intravenous contrast. Coronal and sagittal r econstructions performed. CT DLP: 1068.9 mGycm Automated exposure control for dose reduction was used. FINDINGS: There is no evidence of acute intracranial hemorrhage, acute ischemic changes, mass, mass-effect, or extra-axial fluid collection. There is no effacement of cerebral sulci or basal subarachnoid cister ns. There is no hydrocephalus. There is no midline shift. Sears-white matter distinction is preserv ed. Paranasal sinuses and mastoid air cells are pneumatized. Orbits and globes are intact. IMPRESSION: No acute intracranial abnormality seen.
--- NOTE | 2018-12-16 15:47 | CT ---
EXAMINATION TYPE: CT angio head neck DATE OF EXAM: 12/16/2018 COMPARISON: CT brain same day HISTORY: 43-year-old female Dizziness, blurred vision and confusion x 6 days getting worse. TECHNIQUE: Contiguous axial scanning of the head and neck performed with IV Contrast, patient injecte d with 100 mL of Isovue 370. Coronal/sagittal MIP reconstructions performed. 3-D reconstructions gene rated on a dedicated independent workstation. CT DLP: 1014.8 mGycm Automated exposure control for dose reduction was used. FINDINGS: Neck: Conventional arch vessel branching anatomy. Right brachiocephalic and right common carotid arteries are patent. Right internal carotid artery is patent. Left common and internal carotid arteries are patent. Mild annular plaque within the carotid bulb wit h less than 25% narrowing of the proximal ICA. The vertebral arteries are codominant. Mild discoid calcification at the origin of the right vertebra l artery. Head: The vertebral and basilar arteries as well as the internal carotid arteries are patent without occlus ion. However, the V4 segment vertebral arteries and the basilar artery are diminutive in appearance. There is fusiform dilatation of the distal basilar artery up to 4 mm. Otherwise, anterior and posterior circulation shows no gross abnormality. No other aneurysmal change is identified. IMPRESSION: NECK: 1. NO HEMODYNAMICALLY SIGNIFICANT STENOSIS APPRECIATED IN EITHER INTERNAL CAROTID ARTERY. HEAD: 1. DIMINUTIVE V4 SEGMENT VERTEBRAL ARTERIES AND BASILAR ARTERY. CORRELATE FOR ANY CHRONIC SYMPTOMS OF VERTEBROBASILAR INSUFFICIENCY. 2. MILD FUSIFORM DILATATION OF THE DISTAL BASILAR ARTERY UP TO 4 MM. 3. NO LARGE VESSEL INTRACRANIAL ARTERIAL OCCLUSION OR OTHER ANEURYSMAL CHANGE SEEN.
[2018-12-16 16:58] VITALS: BP 190/76; PULSE 92
== END 2018-12-16 16:45 | disposition home or self-care (01) ==
LOC: EC 13:40
DX: G45.9 Transient cerebral ischemic attack, unspecified (principal); I16.0 Hypertensive urgency; E11.9 Type 2 diabetes mellitus without complications; F17.200 Nicotine dependence, unspecified, uncomplicated; Z79.4 Long term (current) use of insulin; Z79.899 Other long term (current) drug therapy; Z86.14 Personal history of Methicillin resistant Staphylococcus aureus infection
CPT/HCPCS: 99285; 96360; 36415; 93005; 83880; 80053; 82550; 83735; 84100; 84484; 85025; 85610; 85730; 81003; 80306; 70496; 70450; 70498; Q9967

== ENCOUNTER 2019-10-02 09:49 | Day surgery (SDC) | payer BC ==
[~2019-10-02 09:49] MED LIST: ADENOSINE 3 MG/ML 2 ML VIAL IVP ONE; ALPRAZolam 0.25 MG TAB PO PRN; ALPRAZolam 0.5 MG TAB PO PRN; ASPIRIN 325 MG TAB PO STA; ATORVASTATIN 80 MG TAB PO STA; NITROGLYCERIN SL TABS 0.4 MG TAB SUBLINGUAL PRN; SODIUM CHLORIDE 0.9% 1,000 ML in EMPTY BAG 1 BAG IV ONE; SODIUM CHLORIDE 0.9% 100 ML BAG ONE
[2019-10-02 11:03] LABS: Glucose,Whole Blood 247 mg/dL (75-99)
[2019-10-02] MEDS: INSULIN ASPART (NovoLOG) 100 UNIT/ML VIAL SQ SCH ×3 (11:12→21:34)
[2019-10-02 11:24] LABS: Basophils % (A) 0 %; Eosinophils # (A) 0.3 k/uL (0-0.7); Eosinophils % (A) 2 %; HCT 43.3 % (34.0-46.0); HGB 13.7 gm/dL (11.4-16.0); Lymphocytes # (A) 2.8 k/uL (1.0-4.8); Lymphocytes % (A) 22 %; MCH 26.7 pg (25.0-35.0); MCHC 31.8 g/dL (31.0-37.0); MCV 84.1 fL (80.0-100.0); Mean Platelet Volume 7.5; Monocytes # (A) 0.5 k/uL (0-1.0); Monocytes % (A) 4 %; Neutrophils # (A) 8.6 k/uL (1.3-7.7); Neutrophils % (A) 70 %; Platelet Count 361 k/uL (150-450); RBC 5.14 m/uL (3.80-5.40); RDW 13.8 % (11.5-15.5); WBC 12.3 k/uL (3.8-10.6)
[2019-10-02] MEDS ORDERED: fentaNYL (PF) 50 MCG/ML 2 ML AMP ONE (11:42)
[2019-10-02] MEDS ORDERED: LIDOCAINE 1% INJ 10MG/ML (20 ML MDV) ONE (11:43)
[2019-10-02] MEDS: MIDAZOLAM 2 MG/2 ML VIAL IV ONE ×2 (11:44→11:55)
[2019-10-02] MEDS ORDERED: LIDOCAINE 1% INJ 10MG/ML (20 ML MDV) SQ ONE ×2 (11:48→11:50)
[2019-10-02] MEDS ORDERED: fentaNYL (PF) 50 MCG/ML 2 ML AMP IV ONE (11:49)
[2019-10-02] MEDS: HEPARIN SODIUM 1,000 UN/ML (10ML VL) IV ONE ×2 (12:15→12:25)
[2019-10-02] MEDS ORDERED: HEPARIN SODIUM 1,000 UN/ML (10ML VL) ONE (12:15)
[2019-10-02] MEDS ORDERED: CLOPIDOGREL 75 MG TAB ONE (12:26)
[2019-10-02] MEDS ORDERED: CLOPIDOGREL 75 MG TAB PO ONE (12:28)
[2019-10-02] MEDS ORDERED: IOPAMIDOL-370 125ML BTL INJ ONE (12:28)
[2019-10-02] MEDS ORDERED: IOPAMIDOL-370 100ML BTL INJ ONE (12:38)
[2019-10-02] MEDS ORDERED: MIDAZOLAM 2 MG/2 ML VIAL IV ONE (12:45)
[2019-10-02] MEDS ORDERED: ATROPINE SULFATE 0.1 MG/ML 10ML SYRINGE IV PRN (12:54)
[2019-10-02] MEDS ORDERED: MAG HYDROX/AL HYDROX/SIMETH 30 ML CUP PO PRN (12:54)
[2019-10-02] MEDS ORDERED: RX INFO: IV CONTRAST WAS GIVEN 1 EACH MISC MISCELLANE PRN (12:54)
[2019-10-02] MEDS ORDERED: NITROGLYCERIN SL TABS 0.4 MG TAB SUBLINGUAL PRN (12:54)
[2019-10-02] MEDS ORDERED: ZOLPIDEM 5 MG TAB PO PRN (12:54)
[2019-10-02] MEDS ORDERED: SODIUM CHLORIDE 0.9% 1,000 ML IV SCH (13:00)
[2019-10-02] MEDS ORDERED: MAG HYDROX/AL HYDROX/SIMETH 30 ML CUP PO ONE (13:00)
[2019-10-02] MEDS ORDERED: ONDANSETRON 4 MG/2 ML VIAL ONE (13:12)
[2019-10-02] MEDS ORDERED: ONDANSETRON 4 MG/2 ML VIAL IVP ONE (13:18)
--- NOTE | 2019-10-02 15:12 | PTCA ---
PERCUTANEOUSTRANS CORORONARY ANGIOGRAPHY CORONARY ANGIOPLASTY AND IFR MEASUREMENT: Mrs. Lind is a 44-year-old female who was seen yesterday by Dr. Bangura with symptoms of new onset discomfort, dyspnea, and T-wave inversion anteriorly. She underwent cardiac catheterization, was found to have a calcified left anterior descending artery with moderate disease in the mid LAD of 60%-70%. In view of that, recommendation made regarding iFR measurement and if positive, proceed with angioplasty and stenting. The procedures, risks, and complication were discussed with the patient who is in full understanding and agreement. PROCEDURE: A 6-Azeri FR4 guiding catheter introduced into the system after cannulating the left main. A Vanatec Verrata plus pressure guidewire was introduced into the system and positioned in the distal LAD. Subsequently, IFR was measured and it was s60%. At that time, a 2.5 x 12 mm Trek balloon was advanced and one inflation at 8 atmospheres was done. Following that, the balloon was removed and a 2.75 x 18 mm Xience Bianca stent was deployed, post dilated at 16 atmospheres after the last inflation, after appropriate wait, the balloon and the guidewire were withdrawn back in the guiding catheter. Images were obtained and repeated. Those images reveal stable successful stenting. At that point, the guiding catheter, the balloon and the guidewire were removed. The sheath was sutured in place. The patient was returned to her room in stable condition. Of note, the patient had chest discomfort and EKG changes with the inflation that returned to baseline at the end of the procedure. She received 8000 units of intravenous heparin and her CT was measured above 280. She received an oral loading dose of clopidogrel. RESULTS: Successful stenting of the mid LAD with positive iFR preprocedure with reduction of stenosis from 70% to 0%. RECOMMENDATION: Patient will be continued on aspirin, Plavix, beta evelyn, TOÑO inhibitor and statin. The importance of dual antiplatelet treatment were discussed with the patient and her family who are in full understanding and agreement. Duration of the procedure is 29 minutes. MMODL / NIKOLAYN: [id number] /
[2019-10-02 17:26] LABS: Glucose,Whole Blood 115 mg/dL (75-99)
[2019-10-02 20:43] LABS: Glucose,Whole Blood 243 mg/dL (75-99)
[2019-10-02] MEDS ORDERED: INSULIN DETEMIR (LEVEMIR) 100 UNIT/ML SYR SQ SCH (21:00)
[2019-10-02] MEDS ORDERED: ATORVASTATIN 80 MG TAB PO SCH (21:00)
[2019-10-02] MEDS: METOPROLOL TARTRATE 25 MG TAB PO SCH (21:34)
[2019-10-02] MEDS: LISINOPRIL 10 MG TAB PO SCH (21:34)
[2019-10-03 06:11] LABS: Glucose,Whole Blood 159 mg/dL (75-99)
[2019-10-03] MEDS: INSULIN ASPART (NovoLOG) 100 UNIT/ML VIAL SQ SCH (06:32)
[2019-10-03 06:59] LABS: African American GFR (CKD) >90 (>60 ml/min/1.73 sqM); Anion Gap 6 mmol/L; Blood Urea Nitrogen 10 mg/dL (7-17); Calcium 8.8 mg/dL (8.4-10.2); Carbon Dioxide 25 mmol/L (22-30); Chloride 107 mmol/L (98-107); Glucose 156 mg/dL (74-99); Non-African American GFR(CKD) >90 (>60 ml/min/1.73 sqM); Potassium 4.8 mmol/L (3.5-5.1); Sodium 138 mmol/L (137-145)
[2019-10-03] MEDS ORDERED: glipiZIDE 5 MG TAB PO SCH (07:30)
[2019-10-03] MEDS: LISINOPRIL 10 MG TAB PO SCH (08:27)
[2019-10-03] MEDS: METOPROLOL TARTRATE 25 MG TAB PO SCH (08:27)
--- NOTE | 2019-10-03 08:58 | PN ---
PROGRESS NOTE Mrs. Lind is a 44-year-old female who presented with symptoms of chest discomfort and T-wave inversion anteriorly. She has history of hypertension, diabetes and chronic tobacco use. She underwent cardiac catheterization by Dr. Bangura and was found to have calcified LAD and borderline lesion in the mid LAD. Underwent IFR of that vessel that was significantly abnormal. Subsequently, underwent stenting of that vessel. She is doing well today. Her breathing is stable. She denies any chest pain. No dizziness. No palpitation. She continues to be on aspirin 81 mg daily, Lipitor 80 mg daily, Plavix 75 mg daily, glipizide 5 mg twice a day, insulin, lisinopril 10 mg twice a day, metoprolol tartrate 25 mg daily. PHYSICAL EXAMINATION: Blood pressure 149/70 with a heart rate in the 60s. LUNGS: Clear. HEART: Regular rate and rhythm. S1, S2. No S3. No rub. ABDOMEN: Soft, nontender. Obese. EXTREMITIES: No edema. Right groin, no hematoma. EKG revealed T-wave inversion anteriorly that was noted pre procedure. LABORATORY DATA: Lab data revealed BUN and creatinine of 10 and 0.73, potassium 4.8. IMPRESSION: 1. Status post stenting of the left anterior descending coronary artery. 2. Hypertension. 3. Hyperlipidemia. 4. Diabetes mellitus. 5. Chronic tobacco use. RECOMMENDATION: Patient will be discharged home today and followed as an outpatient by Dr. Bangura. The importance of smoking cessation was discussed with her. MMODL / IJN: [id number] /
[2019-10-03] MEDS ORDERED: ASPIRIN 81 MG PO SCH (09:00)
[2019-10-03] MEDS ORDERED: ESCITALOPRAM 20 MG TAB PO SCH (09:00)
[2019-10-03] MEDS ORDERED: LISINOPRIL 10 MG TAB PO SCH (09:00)
[2019-10-03] MEDS ORDERED: CHOLECALCIFEROL 1,000 UNIT TAB PO SCH (09:00)
[2019-10-03 09:58] VITALS: BMI 31.0
[2019-10-03 10:57] VITALS: BP 168/76; PULSE 76; RESP 18; TEMP 98.4
[2019-10-03] MEDS ORDERED: CLOPIDOGREL 75 MG TAB PO SCH (12:00)
--- NOTE | 2019-10-21 11:04 | CC ---
CARDIAC CATHETERIZATION REPORT INDICATION: Unstable angina. PROCEDURE NOTE: After obtaining informed consent, left heart catheterization, coronary angiogram are performed via the right femoral artery using Jah catheters. Patient tolerated the procedure well without any immediate complication. Patient received moderate conscious sedation. Total sedation time was 15 minute. FINDINGS: HEMODYNAMICS: Left ventricular end-diastolic pressure is 8 to 12 mm. There is aortic valve. LEFT VENTRICULOGRAM: Left ventriculogram is not performed. ANGIOGRAPHIC DATA: LEFT MAIN CORONARY ARTERY: Left main coronary artery is a normal size vessel and is free of stenosis, divides into left anterior descending coronary artery and circumflex coronary artery. LAD: Shows a 70% stenosis in its midportion. CIRCUMFLEX CORONARY ARTERY: Shows a 50% to 60% stenosis. RIGHT CORONARY ARTERY: Had mild nonobstructive disease. CONCLUSION: A 70% stenosis involving mid LAD. PLAN: Patient will undergo angioplasty of the same. MMODL / IJN: [id number] /
== END 2019-10-03 10:17 | disposition home or self-care (01) ==
LOC: CATHCVL 09:49 → 3SCARD 12:44 → CATHCVL 10-03 10:17
PROVIDERS: ATTEND Internal Medicine Cardiovascular Disease
DX: I25.110 Atherosclerotic heart disease of native coronary artery with unstable angina pectoris (principal); I25.84 Coronary atherosclerosis due to calcified coronary lesion; R94.31 Abnormal electrocardiogram [ECG] [EKG]; I10 Essential (primary) hypertension; E11.9 Type 2 diabetes mellitus without complications; E78.5 Hyperlipidemia, unspecified; F17.210 Nicotine dependence, cigarettes, uncomplicated; Z82.49 Family history of ischemic heart disease and other diseases of the circulatory system; Z79.4 Long term (current) use of insulin; Z79.899 Other long term (current) drug therapy
CPT/HCPCS: 93571; 93458; 85347; 80048; 85025; 81025; C9600; C1769 ×2; C1887; C1725; C1894; C1874; J2250; J2405; J2001; J3010; J0153; J1644; Q9967 ×2